=== PATIENT | male | born 1990 | race Caucasian/White ===

== ENCOUNTER 2025-03-24 12:00 | Emergency (ER) | payer OTHER ==
[2025-03-24 12:08] VITALS: PULSE 84; BMI 25.7
[2025-03-24] MEDS ORDERED: diphenhydrAMINE HCL 25 MG CAPSULE (FP) PO ONE (12:59)
[2025-03-24] MEDS: diphenhydrAMINE HCL 25 MG CAPSULE (FP) PO ONE (13:01)
[2025-03-24 14:23] VITALS: BP 115/64; RESP 15; TEMP 98.2
== END 2025-03-24 15:26 | disposition home or self-care (01) ==
LOC: JER 12:00
DX: T78.1XXA Other adverse food reactions, not elsewhere classified, initial encounter (principal)
CPT/HCPCS: 99283-25